=== PATIENT | female | born 1945 | race Caucasian/White ===

== ENCOUNTER → 2023-08-17 11:33 | Outpatient (REF) | payer MEDICARE, SELFPAY | LOC: RAD 11:33 | PROVIDERS: ATTENDING PHYSICIAN Orthopaedic Surgery; FAMILY PHYSICIAN Family Medicine | DX: M25.561 Pain in right knee (principal) | CPT/HCPCS: 73562 ==

== ENCOUNTER → 2023-10-08 06:46 | Outpatient (REF) | payer MEDICARE, OTHER, SELFPAY ==
[2023-10-08] MEDS: LEXISCAN 0.400000000000000022 MG IV (09:26)
== END ==
LOC: RCS 06:46
PROVIDERS: ATTENDING PHYSICIAN Internal Medicine Cardiovascular Disease; FAMILY PHYSICIAN Family Medicine; REFERRING PHYSICIAN Nurse Practitioner Family
DX: Z01.810 Encounter for preprocedural cardiovascular examination (principal); Z87.891 Personal history of nicotine dependence; I51.7 Cardiomegaly; R06.02 Shortness of breath; Z86.711 Personal history of pulmonary embolism
CPT/HCPCS: 71271; 78452; 93017; 93306; A9500; J2785; Q9950

== ENCOUNTER 2023-10-11 05:58 | Inpatient (IN) | payer MEDICARE, OTHER, SELFPAY ==
--- NOTE | 2023-09-10 11:08 | CM ---
Patient is scheduled for an elective R TKR on 10/11/23. Spoke with patient prior to surgery via telephone. Introduced role of Orthopedic Navigator. Patient reports that she lives with her son and [id number] in a one story home. There are five
(4-1) steps to enter. She currently functions independently and uses a rolling walker. She also has a cane, toilet rails and shower seat. She has had VN services in the past. PCP is Dr. Addi Benson.
Discussed orthopedic program and post surgical plans. Reviewed anticipated length of stay and that goal is for her to return home at discharge. Also reviewed outpatient PT. Patient is in agreement with tentative plan but will not have transportation
for outpatient PT and will need VN services. She will have support from her son when she goes home.
Patient will complete online education.
Plan: Orthopedic Navigator will remain available to assist with the care of patient and will reassess discharge needs after surgery.
[2023-09-20 08:08] VITALS: BMI 39.5
[2023-09-20 09:05] LABS: Hemoglobin 13.3 g/dL (12.0-16.0); Mean Corp Hgb Conc. 33.3 g/dL (33.0-37.0); Mean Corpuscular Hgb 29.4 pg (27.0-31.0); Mean Corpuscular Volume 88.3 fL (81.0-99.0); Mean Platelet Volume 10.6 fL (7.4-10.4); Platelet Count 273 10^3/uL (130-400); Red Blood Cell Count 4.53 10^6/uL (4.20-5.40); Red Cell Dist. Width 12.8 % (11.5-14.5)
[2023-09-20 09:49] LABS: ALT (SGPT) 11 U/L (0-35); AST (SGOT) 21 U/L (14-36); Albumin 4.5 g/dl (3.5-5.0); Alkaline Phosphatase 97 U/L (38-126); Blood Urea Nitrogen 20 mg/dl (7-17); Calcium 9.8 mg/dl (8.4-10.2); Carbon Dioxide 20 mmol/L (22-30); Chloride 99 mmol/L (98-107); Estimated Creatinine Clearance 68 ml/min; Glucose 135 mg/dl (70-99); Potassium 4.8 mmol/L (3.5-5.1); Sodium 134 mmol/L (135-145); Total Bilirubin 0.4 mg/dl (0.2-1.3); Total Protein 7.6 g/dl (6.3-8.2); eGFR > 60.00
[2023-09-20 12:20] LABS: Glycohemoglobin (HgbA1c) 6.9 % (4.0-5.6)
[2023-09-20 15:05] VITALS: BMI 39.5
--- NOTE | 2023-09-24 12:14 | W.PN.UPDATE ---
Update Note
Progress Note Update
Previously borderline DM, now A1C 6.9--counseled on strict carb control and Rx Metformin 500mg daily. She will discuss this with PCP appt 09/24.
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
Has not seen dentist in quite some time--required clearance.
[2023-10-11] VITALS (19 sets, daily range): BP systolic 137–185; BP diastolic 47–98; PULSE 91; O2SAT 95; BMI 39.5
[2023-10-11 06:44] LABS: Glucose - Point of Care 133 mg/dl (70-99)
[2023-10-11] MEDS: TYLENOL 650 MG PO (06:46)
[2023-10-11] MEDS: MOBIC 15 MG PO (06:47)
[2023-10-11 09:22] LABS: Glucose - Point of Care 128 mg/dl (70-99)
[2023-10-11] MEDS: ROXICODONE 10 MG PO ×2 (10:28→14:34)
[2023-10-11] MEDS: NEURONTIN 300 MG PO ×2 (11:50→20:53)
[2023-10-11] MEDS: ULTRAM 50 MG PO ×3 (11:50→21:09)
[2023-10-11 12:10] LABS: Glucose - Point of Care 231 mg/dl (70-99)
[2023-10-11] MEDS: NORMOSOL-R 1000 IV (12:19)
[2023-10-11 13:13] LABS: Glucose - Point of Care 300 mg/dl (70-99)
--- NOTE | 2023-10-11 13:45 | W.PN.UPDATE ---
Update Note
Progress Note Update
Patient seen postop. Doing well. VSS. Eating lunch. Pulm: nonlabored. CV: regular. Abd: benign. RLE: NVI distally. Calf soft. Dressing CDI. Able to fully extend. Postop xrays as expected. Modified Susan postop. Plan for VN/home PT.
Plan for discharge home tomorrow.
--- NOTE | 2023-10-11 13:57 | SUR.PHASEI ---
pacu - late entry - patient in pacu post op spinal for right total knee. Awake and alert, cooperative, sensation to toes on arrival and able to move both feet. vss in pacu, medicated with roxicodone at 1028, holding in pacu for available ortho
bed, Medicated with ultram and neurontin - started with routine meds for some discomfort right knee. Glucose rechecked - however patient had Decadron in surgery and ate breakfast in pacu - Dr Amado updated with glucose level - no treatment in pacu
[2023-10-11] MEDS: LANTUS 0.0800000000000000017 UNITS SC (15:13)
[2023-10-11] MEDS: ANCEF 5 IV ×2 (16:09→23:17)
[2023-10-11 17:21] LABS: Glucose - Point of Care 167 mg/dl (70-99)
[2023-10-11] MEDS: XARELTO 10 MG PO (17:27)
[2023-10-11] MEDS: NOVOLOG FLEXPEN-MODERATE RESISTANCE 1 UNITS SC (17:27)
[2023-10-11] MEDS: NOVOLOG FLEXPEN 4 UNITS SC (17:28)
[2023-10-11] MEDS: LOPRESSOR 25 MG PO (20:54)
[2023-10-11] MEDS: COLACE PO (20:58)
[2023-10-11] MEDS: ZOLOFT 200 MG PO (21:08)
[2023-10-11] MEDS: ATIVAN 1 MG PO (21:09)
[2023-10-11 21:35] LABS: Glucose - Point of Care 136 mg/dl (70-99)
[2023-10-12] VITALS (10 sets, daily range): BP systolic 99–161; BP diastolic 48–82; PULSE 66–73; O2SAT 91–95
[2023-10-12] MEDS: ROXICODONE 10 MG PO ×4 (03:57→20:21)
--- NOTE | 2023-10-12 07:21 | W.PN.ORTHO ---
Today's Communication / Plan
-
Plan for discharge home today with home VN/PT
Assessment
.
Distal Motor Intact: Yes
Dressing:
Clean, dry and intact.
Assessment:
Doing well s/p R TKR
Plan
.
Surgery / Date: 10/11/2023 R TKR [facility]
DVT Prophylaxis: Other
Activity:
Out of bed.
PT/OT
Discharge Plan: Home w/ VN
Subjective
.
.:
Patient resting comfortably. OOB yesterday. Pain controlled.
Vital Signs and Labs
.
Vital Signs and Labs:
Lab Results
09/20/23 07:39
09/20/23 07:39
Temp Pulse Resp BP Pulse Ox
98.2 F 69 16 154/68 94
10/12/23 03:55 10/12/23 03:55 10/12/23 03:55 10/12/23 04:15 10/12/23 03:55
Non-invasive Hgb result: 11.2
Physical Exam
-
Pulm: nonlabored
CV: regular
R knee: Dressing CDI. Calf soft. Able to fully extend. NVI distally.
[2023-10-12 07:38] LABS: Glucose - Point of Care 137 mg/dl (70-99)
[2023-10-12] MEDS: COLACE PO ×2 (08:00→20:20)
[2023-10-12] MEDS: ULTRAM 50 MG PO ×4 (08:00→22:32)
[2023-10-12] MEDS: NEURONTIN 300 MG PO ×2 (08:00→20:21)
[2023-10-12] MEDS: LANTUS 0.0800000000000000017 UNITS SC (08:01)
[2023-10-12] MEDS: LOPRESSOR 25 MG PO ×2 (08:02→20:28)
[2023-10-12] MEDS: NOVOLOG FLEXPEN-MODERATE RESISTANCE SC ×2 (08:02→12:06)
[2023-10-12] MEDS: NOVOLOG FLEXPEN 4 UNITS SC ×3 (08:03→17:39)
--- NOTE | 2023-10-12 08:25 | CM ---
Addendum entered by Belkis Darling 10/12/23 12:12:
Met with son, Alexander, at bedside. Update provided as to discharge plans. He is in agreement with SNF rehab. Discussed payment of wheel chair van. Son states that transport company can call patient first and if she is not available he can be contacted.
Addendum entered by Belkis Darling 10/12/23 11:03:
Spoke with Mariza at [facility] She states that they can accept patient and will have a bed on Sunday. Weekend correctional casework specialist should call [phone] (supervisor front) and ask for Nursing Senior Web Developer to confirm admission.
Report: [phone]

Patient updated and in agreement. Discussed wheel chair van transport and approximate cost for this. She will give her son her credit card and he will pay related charges.
Dr. Herzog and PAMELA Lugo updated.
Transport form completed and on chart.
Addendum entered by Belkis Darling 10/12/23 09:51:
Patient worked with OT and needs a lot of assistance. Met again with patient to discuss possible need for SNF. Discussed options and PAC data. She selects for referrals to be sent to [facility] (first choice), [facility] and [facility].
Referrals and completed PASRR sent. Will follow up with facilities.
Original Note:
Reviewed chart and held rounds with PT, OT and nursing. Patient admitted as planned for elective R TKR. Met with patient at bedside. Confirmed information previously obtained for assessment. Also discussed discharge plans. The plan, at this time,
is for patient to return home at discharge. Patient states that ehr children will not be able to provide much support. She states that she was thinking about hiring a private medicare compliance auditor; will provide resource list. She also states that she feels she
may need SNF. She has been in [facility] before and would want to go there. Reviewed Medicare guidelines for SNF and told patient we will further discuss after therapy today. If she goes home she will need VN. Reviewed services with her including
start of care (tentatively 10/12), services to be ordered (PT, OT, SN, INBOUND SALES MANAGER) and frequency/duration of services. Options list provided and PAC data reviewed. She selects [facility].
Patient has a rolling walker, lift chair, shower seat toilet rails, raised toilet seat (which she doesn't want to use because it blocks her bidet controls) and a cane at home.
VN referral was completed and sent to [facility] through [employer] with request for start of care on 10/12. Confirmation received of their ability to accept case. freight rate clerk to fax discharge instructions to [facility] when complete.
Patient will use [facility] pharmacy for discharge prescriptions.
[2023-10-12 11:53] LABS: Glucose - Point of Care 142 mg/dl (70-99)
--- NOTE | 2023-10-12 12:10 | W.PN.ORTHO ---
Today's Communication / Plan
-
SNF
Assessment
.
Distal Motor Intact: Yes
Dressing:
Clean, dry and intact.
Assessment:
Pulmonary emboli, bilateral with RV strain, unprovoked, 2021--Xarelto at modified dose until POD#3-then 20mg hs dosing --SCDs at all times when not ambulating
Deconditioning/Morbid Obesity/chronic pain-requiring additional rehab needs prior to returning home at a mod I level
NIDDM/morbid obesity--she will require Cefadroxil ppx at d/c
Plan
.
Surgery / Date: 10/11/2023 R TKR [facility]
DVT Prophylaxis: Other (Xarelto 10mg at hs--20mg hs beginning 10/14/23 pm)
Activity:
Out of bed.
PT/OT
Discharge Plan: SNF
Subjective
.
.:
Patient resting comfortably.
Vital Signs and Labs
.
Vital Signs and Labs:
Lab Results
09/20/23 07:39
09/20/23 07:39
Temp Pulse Resp BP Pulse Ox
98.6 F 70 16 161/74 94
10/12/23 07:59 10/12/23 07:59 10/12/23 07:59 10/12/23 07:59 10/12/23 08:00
Non-invasive Hgb result: 11.2
Physical Exam
-
HEENT: No pallor, cyanosis, or jaundice. Throat clear.
NECK: Supple. No JVD.
RESPIRATORY: Lungs clear to auscultation.
CVS: S1, S2 normal. RRR.� No murmur, rub or gallop.
ABDOMEN: Soft, non-tender. No distension. BS+/normal.
EXTREMITIES: strength equal, no calf pain with palpation
DORMITORY SUPERVISOR: AOx3. No focal deficits. international logistics manager grossly intact
[2023-10-12 16:46] LABS: Glucose - Point of Care 165 mg/dl (70-99)
[2023-10-12] MEDS: XARELTO 10 MG PO (17:36)
[2023-10-12] MEDS: NOVOLOG FLEXPEN-MODERATE RESISTANCE 1 UNITS SC (17:39)
[2023-10-12 21:34] LABS: Glucose - Point of Care 148 mg/dl (70-99)
[2023-10-12] MEDS: ATIVAN 1 MG PO (22:32)
[2023-10-12] MEDS: ZOLOFT 200 MG PO (22:32)
[2023-10-13 03:07] VITALS: BP 141/64
[2023-10-13 07:30] VITALS: BP 148/69
[2023-10-13 07:32] LABS: Glucose - Point of Care 124 mg/dl (70-99)
[2023-10-13] MEDS: COLACE PO ×3 (08:28→20:12)
[2023-10-13] MEDS: NOVOLOG FLEXPEN 4 UNITS SC ×3 (08:28→17:52)
[2023-10-13] MEDS: NOVOLOG FLEXPEN-MODERATE RESISTANCE SC ×2 (08:28→11:44)
[2023-10-13] MEDS: NEURONTIN 300 MG PO ×2 (08:29→20:07)
[2023-10-13] MEDS: ULTRAM 50 MG PO ×4 (08:29→22:36)
[2023-10-13] MEDS: LANTUS 0.0400000000000000008 UNITS SC (08:29)
[2023-10-13] MEDS: LOPRESSOR 25 MG PO ×2 (08:30→20:07)
[2023-10-13] MEDS: ROXICODONE 10 MG PO ×2 (08:40→16:49)
--- NOTE | 2023-10-13 08:59 | W.PN.ORTHO ---
Today's Communication / Plan
-
Patient doing well now POD#2 Right TKA
Plan for SNF tomorrow/Sunday ([facility] is the plan), appreciate CM
Continue WBAT RLE on walker
PT/OT
Xarelto 10mg qhs, will resume 20mg qhs on Sunday (16 October)
Dressing to remain 7-10 days
Outpatient follow-up in 2 weeks for staple removal
Assessment
.
Distal Motor Intact: Yes
Dressing:
Clean, dry and intact. Aquacel dressing in place right knee
Assessment:
POD#2 Right TKA
Overall doing/feeling well
Calf soft, nontender
Plan
.
Surgery / Date: 10/11/2023 R TKR [facility]
DVT Prophylaxis: Other (Xarelto 10mg qhs, resume 20mg qhs Sunday (16 October))
Activity:
Out of bed. WBAT RLE on walker
PT/OT
Discharge Plan: SNF ([facility])
Subjective
.
.:
Patient resting comfortably this AM. Moderate amount of pain, as expected
Vital Signs and Labs
.
Vital Signs and Labs:
Lab Results
09/20/23 07:39
09/20/23 07:39
Temp Pulse Resp BP Pulse Ox
99.6 F 87 20 148/69 94
10/13/23 07:30 10/13/23 08:30 10/13/23 07:30 10/13/23 08:30 10/13/23 07:30
Non-invasive Hgb result: 11.5
[2023-10-13 11:20] VITALS: BP 125/77
[2023-10-13 11:42] LABS: Glucose - Point of Care 133 mg/dl (70-99)
[2023-10-13 15:34] VITALS: BP 163/74
[2023-10-13 16:48] LABS: Glucose - Point of Care 160 mg/dl (70-99)
[2023-10-13] MEDS: XARELTO 10 MG PO (17:52)
[2023-10-13] MEDS: NOVOLOG FLEXPEN-MODERATE RESISTANCE 1 UNITS SC (17:53)
[2023-10-13 21:35] LABS: Glucose - Point of Care 154 mg/dl (70-99)
[2023-10-13] MEDS: ZOLOFT 200 MG PO (22:36)
[2023-10-13] MEDS: ATIVAN 1 MG PO (22:36)
[2023-10-14 00:15] VITALS: BP 140/73
[2023-10-14 07:35] LABS: Glucose - Point of Care 137 mg/dl (70-99)
[2023-10-14 07:45] VITALS: BP 103/64
[2023-10-14] MEDS: NOVOLOG FLEXPEN-MODERATE RESISTANCE SC ×2 (08:30→11:43)
[2023-10-14] MEDS: COLACE PO (08:31)
[2023-10-14] MEDS: ULTRAM 50 MG PO (08:31)
[2023-10-14] MEDS: LOPRESSOR PO (08:31)
[2023-10-14] MEDS: NEURONTIN 300 MG PO (08:31)
[2023-10-14] MEDS: NOVOLOG FLEXPEN 4 UNITS SC ×2 (08:33→12:19)
[2023-10-14] MEDS: LANTUS 0.0400000000000000008 UNITS SC (08:33)
[2023-10-14] MEDS: COLACE 100 MG PO (08:40)
--- NOTE | 2023-10-14 09:28 | W.PN.ORTHO ---
Today's Communication / Plan
-
Patient doing well now POD#3 Right TKA
Plan for SNF today ([facility] is the plan), appreciate CM
Continue WBAT RLE on walker
PT/OT
Xarelto 10mg qhs, will resume 20mg qhs on Sunday (October 25) at [facility]
Dressing to remain 7-10 days
Outpatient follow-up in 2 weeks for staple removal
Assessment
.
Distal Motor Intact: Yes
Dressing:
Clean, dry and intact. Aquacel in place right knee with contained strikethrough (minimal)
Assessment:
POD#3 Right TKA
Overall doing/feeling well
Calf soft, nontender
Plan
.
Surgery / Date: Right TKA October 25 ([facility])
DVT Prophylaxis: Other (Xarelto)
Activity:
Out of bed. WBAT RLE on walker
PT/OT
Discharge Plan: SNF
Discharge Information:
[facility]
Subjective
.
.:
Patient resting comfortably this AM. Pain improved
Vital Signs and Labs
.
Vital Signs and Labs:
Lab Results
09/20/23 07:39
09/20/23 07:39
Temp Pulse Resp BP Pulse Ox
98.9 F 88 20 103/64 95
10/14/23 07:45 10/14/23 07:45 10/14/23 07:45 10/14/23 07:45 10/14/23 07:45
Non-invasive Hgb result: 11.5
--- NOTE | 2023-10-14 09:30 | W.DS.TRANS ---
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
-
Discharge Instructions:
Sleep Apnea Risk Intermediate
Discharge Diagnosis/Procedures Right knee OA s/p TKA
Diet No restrictions
Activity With assistance,As tolerated,With Walker
Driving Restrictions Not until seen by your Dr
Bathing Restrictions OK to Shower
Wound Care Dressing to remain 7-1- days
Instructions:
Stand-Alone Forms: Total Hip/Knee Replacement D/C
Changes to Home Medications: No
Discharge Medications:
DC Medications w/original date entered in [employer]
metoprolol tartrate 50 mg tablet 50 mg PO BID Blood pressure 11/13/21
sertraline 100 mg tablet 200 mg PO HS Mental Health/Anxiety 11/13/21
acetaminophen 325 mg tablet 650 mg PO Q6H PRN mild pain/fever>101 02/21/22
bisacodyl 10 mg rectal suppository (Dulcolax (bisacodyl)) 10 mg [place] DAILY PRN if mom ineffective 02/21/22
lisinopril 20 mg tablet 20 mg PO BID Blood pressure 02/21/22
sennosides 8.6 mg tablet (senna) 17.2 mg PO BID PRN constipation 02/21/22
sodium phosphates 19 gram-7 gram/118 mL enema (Fleet Enema) 118 ml [place] DAILY PRN if dulcolax ineffective 02/21/22
oxycodone 10 mg tablet 10 mg PO Q6H PRN pain 09/14/23
metformin 500 mg tablet 500 mg PO DAILY Diabetes #30 tabs 09/24/23
docusate sodium 100 mg capsule 100 mg PO BID Constipation #30 caps 10/13/23
gabapentin 300 mg capsule 300 mg PO BID Pain #30 caps 10/13/23
lorazepam 1 mg tablet 1 mg PO HS Sleep #30 tabs 10/13/23
rivaroxaban 20 mg tablet (Xarelto) 20 mg PO QPM Blood clot prevention/tx #30 tabs 10/13/23
Home Medication Changes
Pending Results: No
[2023-10-14] MEDS: ROXICODONE 10 MG PO (09:35)
--- NOTE | 2023-10-14 11:09 | CM ---
Reviewed the chart notes and spoke with the patient at the bedside. IMM signed and placed on chart. CM continues to be available to patient/family and is monitoring medical plan for needs at discharge.
Plan: Discharge to [place] today. Patient's son to transport.
Call report to: [phone]
Fax report to: [phone]
[2023-10-14 11:31] VITALS: BP 146/60
[2023-10-14 11:43] LABS: Glucose - Point of Care 121 mg/dl (70-99)
[2023-10-14] MEDS: ULTRAM PO (13:12)
== END 2023-10-14 13:51 | DRG 470 ==
LOC: 2 SOUTH 05:58
PROVIDERS: ADMITTING PHYSICIAN Orthopaedic Surgery; FAMILY PHYSICIAN Family Medicine
PROC: 0SRC0J9 Replacement of Right Knee Joint with Synthetic Substitute, Cemented, Open Approach (ICD-10-PCS; 2023-10-11)
DX: M17.11 Unilateral primary osteoarthritis, right knee (principal); E66.01 Morbid (severe) obesity due to excess calories; Z68.39 Body mass index [BMI] 39.0-39.9, adult
CPT/HCPCS: 36415; 73560; 80053; 82962; 83036; 85027; 87070; 97110; 97116; 97162; 97167; 97530; 97535; C1713; C1776

== ENCOUNTER → 2023-10-16 10:29 | Outpatient (REF) | payer MEDICARE, OTHER, SELFPAY ==
[2023-10-16 11:50] LABS: Hematocrit 33.4 % (37.0-47.0); Hemoglobin 11.2 g/dL (12.0-16.0); Mean Corp Hgb Conc. 33.5 g/dL (33.0-37.0); Mean Corpuscular Hgb 29.4 pg (27.0-31.0); Mean Corpuscular Volume 87.7 fL (81.0-99.0); Mean Platelet Volume 11.4 fL (7.4-10.4); Platelet Count 264 10^3/uL (130-400); Red Blood Cell Count 3.81 10^6/uL (4.20-5.40); Red Cell Dist. Width 12.8 % (11.5-14.5)
== END ==
LOC: OLABWHC 10:29
PROVIDERS: ATTENDING PHYSICIAN Family Medicine
DX: E66.01 Morbid (severe) obesity due to excess calories (principal); I26.99 Other pulmonary embolism without acute cor pulmonale; I65.9 Occlusion and stenosis of unspecified precerebral artery; R26.2 Difficulty in walking, not elsewhere classified; M17.11 Unilateral primary osteoarthritis, right knee
CPT/HCPCS: 36415; 85027

== ENCOUNTER → 2023-10-17 11:05 | Outpatient (REF) | payer OTHER, MEDICARE, SELFPAY ==
[2023-10-17 11:54] LABS: Blood Urea Nitrogen 26 mg/dl (7-17); Calcium 9.4 mg/dl (8.4-10.2); Carbon Dioxide 27 mmol/L (22-30); Chloride 98 mmol/L (98-107); Glucose 116 mg/dl (70-99); Potassium 4.8 mmol/L (3.5-5.1); Sodium 132 mmol/L (135-145); eGFR > 60.00
== END ==
LOC: OLABP 11:05
PROVIDERS: ATTENDING PHYSICIAN Family Medicine
DX: E66.01 Morbid (severe) obesity due to excess calories (principal); I26.99 Other pulmonary embolism without acute cor pulmonale; I65.9 Occlusion and stenosis of unspecified precerebral artery; R26.2 Difficulty in walking, not elsewhere classified; M17.11 Unilateral primary osteoarthritis, right knee
CPT/HCPCS: 36415; 80048

== ENCOUNTER → 2023-10-19 11:35 | Outpatient (REF) | payer OTHER, MEDICARE, SELFPAY ==
[2023-10-19 14:03] LABS: % Basophils 0.4 % (0-2); % Eosinophils 1.6 % (0-6); % Lymphocytes 20.4 % (20.5-51.1); % Monocytes 6.3 % (1.7-9.3); % Neutrophils 70.3 % (42.2-75.2); Absolute Eosinophils 0.2 10^3/uL (0-0.7); Absolute Immature Granulocytes 0.1 10^3/uL (0-0.05); Absolute Lymphocytes 1.9 10^3/uL (1.2-3.4); Absolute Monocytes 0.6 10^3/uL (0.1-0.6); Absolute Neutrophils 6.4 10^3/uL (1.4-6.5); Hematocrit 33.8 % (37.0-47.0); Hemoglobin 11.2 g/dL (12.0-16.0); Mean Corp Hgb Conc. 33.1 g/dL (33.0-37.0); Mean Corpuscular Hgb 28.9 pg (27.0-31.0); Mean Corpuscular Volume 87.3 fL (81.0-99.0); Mean Platelet Volume 10.7 fL (7.4-10.4); Nucleated Red Blood Cells % 0 %; Platelet Count 275 10^3/uL (130-400); Red Blood Cell Count 3.87 10^6/uL (4.20-5.40); White Blood Cell Count 9.1 10^3/uL (4.8-10.8)
[2023-10-19 14:13] LABS: Blood Urea Nitrogen 25 mg/dl (7-17); Calcium 9.5 mg/dl (8.4-10.2); Carbon Dioxide 23 mmol/L (22-30); Chloride 98 mmol/L (98-107); Glucose 117 mg/dl (70-99); Potassium 4.5 mmol/L (3.5-5.1); Sodium 131 mmol/L (135-145); eGFR > 60.00
== END ==
LOC: OLABP 11:35
PROVIDERS: ATTENDING PHYSICIAN Family Medicine
DX: I26.99 Other pulmonary embolism without acute cor pulmonale (principal); I65.9 Occlusion and stenosis of unspecified precerebral artery; Z96.651 Presence of right artificial knee joint
CPT/HCPCS: 36415; 80048; 85025

== ENCOUNTER → 2023-10-26 10:48 | Outpatient (REF) | payer OTHER, MEDICARE, SELFPAY ==
[2023-10-26 12:25] LABS: Blood Urea Nitrogen 30 mg/dl (7-17); Calcium 9.4 mg/dl (8.4-10.2); Carbon Dioxide 21 mmol/L (22-30); Chloride 101 mmol/L (98-107); Glucose 121 mg/dl (70-99); Potassium 4.6 mmol/L (3.5-5.1); Sodium 134 mmol/L (135-145); eGFR > 60.00
== END ==
LOC: OLABP 10:48
PROVIDERS: ATTENDING PHYSICIAN Family Medicine
DX: I26.99 Other pulmonary embolism without acute cor pulmonale (principal); I65.9 Occlusion and stenosis of unspecified precerebral artery; Z96.651 Presence of right artificial knee joint
CPT/HCPCS: 36415; 80048